=== PATIENT | male | born 1970 | race Caucasian/White ===

== ENCOUNTER 2020-03-14 15:52 | Emergency (ER) | payer BC ==
[~2020-03-14] VITALS: Ht 180.3 cm; Wt 127.0 kg
[2020-03-14 16:25] VITALS: BP_SYST 128
[2020-03-14] MEDS ORDERED: KETOROLAC TROMETHAMINE 60 MG/2 ML VIAL IM ONE (17:30)
[2020-03-14 18:25] VITALS: BP_SYST 142
== END 2020-03-14 18:25 | disposition home or self-care (01) ==
LOC: SED 15:52
DX: M54.32 Sciatica, left side (principal)
CPT/HCPCS: 93971; 96372; 99284; J1885

== ENCOUNTER 2022-04-19 00:20 | Emergency (ER) | payer BC ==
[~2022-04-19] VITALS: Ht 180.3 cm; Wt 129.3 kg
[2022-04-19 00:29] VITALS: BP_SYST 130
--- NOTE | 2022-04-19 00:36 | NUR ---
51 YR OLD AOX4, AMBULATORY MALE WITH COMPLAINT OF SOB, SWEATING WITH PRODUCTIVE COUGH, NASAL DRAINAGE, AND EAR PRESSURE. PT HAS HX OF HTN. PT PLACED ON FEDERAL AGENT IN GOWN. AT THE BEDSIDE
--- NOTE | 2022-04-19 00:44 | NUR ---
First contact. Pt present in room with at bedside.
[2022-04-19] MEDS ORDERED: DECADRON 4 MG TABLET PO ONE (00:45)
[2022-04-19] MEDS ORDERED: KETOROLAC TROMETHAMINE 15 MG VIAL IVP ONE ×2 (00:45→01:45)
[2022-04-19] MEDS ORDERED: KETOROLAC TROMETHAMINE 30 MG VIAL IM ONE (01:15)
[2022-04-19 01:36] LABS: BASOPHILS % (AUTO) 0.3 % (0.0-2.0); EOSINOPHILS % (AUTO) 0.1 % (0.0-4.0); HEMATOCRIT 39.5 % (36-54); HEMOGLOBIN 13.2 g/dL (14.0-18.0); LYMPHOCYTES # (AUTO) 1.6 K/uL (1.0-5.5); MEAN CORPUSCULAR HEMOGLOBIN 28 pg (27-31); MEAN CORPUSCULAR HGB CONC 33 % (32-36); MEAN CORPUSCULAR VOLUME 82 fL (79.0-98.0); MONOCYTES # (AUTO) 1.2 K/uL (0.0-1.0); MONOCYTES % (AUTO) 10.3 % (1.7-9.3); NEUTROPHILS # (AUTO) 9.2 K/uL (1.8-7.7); NEUTROPHILS % (AUTO) 76.3 % (40.0-70.0); PLATELET COUNT (AUTO) 250 K/uL (130-430); RED CELL DISTRIBUTION WIDTH 14.4 % (9.0-15.0); WHITE BLOOD COUNT (AUTO) 12.1 K/uL (4.8-10.8)
[2022-04-19 01:40] LABS: CALCIUM 8.2 mg/dL (8.4-11.0); CREATININE 0.88 mg/dL (0.55-1.30); POTASSIUM 3.3 mmol/L (3.5-5.1)
[2022-04-19 01:54] LABS: STREPTOCOCCUS A SCREEN (RAPID) NEGATIVE (NEGATIVE)
[2022-04-19 01:54] LABS: ALBUMIN 3.4 g/dL (3.4-4.8); TOTAL BILIRUBIN 0.2 mg/dL (0.0-1.0)
[2022-04-19] MEDS ORDERED: POTASSIUM CHLORIDE 20 MEQ TAB.PRT.SR PO ONE (02:15)
[2022-04-19] MEDS ORDERED: LIDOCAINE VISCOUS 2%, 15 ML UDC MM ONE (02:15)
[2022-04-19] MEDS ORDERED: GUAI5SYR4 PO ×4 (02:58→03:14)
[2022-04-19] MEDS ORDERED: DEXA4TAB PO ×2 (02:58)
[2022-04-19] MEDS ORDERED: LORA10TA7 PO ×3 (02:58→03:14)
[2022-04-19] MEDS ORDERED: NIRM1TAB PO ×3 (02:58→03:14)
[2022-04-19] MEDS ORDERED: DEC4 PO (03:14)
[2022-04-19 03:15] VITALS: BP_SYST 116
--- NOTE | 2022-04-19 03:28 | NUR ---
Patient given written and verbal discharge instructions and verbalizes understanding. ER MD discussed with patient the results and treatment provided. Patient in stable condition. ID arm band removed. IV catheter removed intact and dressing applied, no active bleeding.Rx of dexamethasone, guaifenesin/codeine syrup, loratadine, and nirmatrelvir/ritonavir given. Patient educated on pain management and to follow up with PMD. Pt and also understand that they must self isolate to prevent spreading covid to others.Opportunity for questions provided and answered. Medication side effect fact sheet provided.
== END 2022-04-19 03:28 | disposition home or self-care (01) ==
LOC: SED 00:20
DX: U07.1 COVID-19 (principal); E87.6 Hypokalemia; J02.8 Acute pharyngitis due to other specified organisms; B97.89 Other viral agents as the cause of diseases classified elsewhere; I10 Essential (primary) hypertension; Z79.899 Other long term (current) drug therapy
CPT/HCPCS: 36415; 71045; 80053; 85025; 86403; 87081; 87426; 87804 ×2; 93005; 96374; 99285; J1885; J2001; J8540

== ENCOUNTER 2023-06-28 08:09 | Emergency (ER) | payer BC ==
[~2023-06-28] VITALS: Ht 177.8 cm; Wt 122.5 kg
[~2023-06-28 08:09] MED LIST: DEC4 PO; GUAI5SYR4 PO; LORA10TA7 PO; NIRM1TAB PO
[2023-06-28 08:10] VITALS: BP_SYST 154; PULSE 78; RESP 17; TEMP 98.1; O2SAT 98
--- NOTE | 2023-06-28 08:10 | NUR ---
BROUGHT BACK TO BED #4 AND TRIAGED. REPORT GIVEN TO ROMA
--- NOTE | 2023-06-28 08:15 | NUR ---
RECEIVED PT FROM JUDIE HUGGINS. ASSUMED CARE. PT BIBS FROM HOME FOR RLQ PAIN SINCE LAST NIGHT, +NAUSEA. DENIES DIARRHEA OR VOMITING. PT IS AAOX4. ON R/A. VSS. SKIN CDI, NO EDEMA, PERIPHERAL PULSES NORMAL. SIDERAILS UP X2.
--- NOTE | 2023-06-28 08:17 | NUR ---
DR. LAWSON AT BEDSIDE TO ASSESS PT.
--- NOTE | 2023-06-28 08:20 | NUR ---
URINE OBTAINED AND TAKEN TO LAB.
[2023-06-28 08:49] LABS: BILIRUBIN,URINE NEGATIVE (NEGATIVE); BLOOD, URINE NEGATIVE (NEGATIVE); CLARITY/URINE CLEAR (CLEAR); COLOR,URINE YELLOW (YELLOW); GLUCOSE,URINE NEGATIVE (NEGATIVE); KETONES,URINE NEGATIVE (NEGATIVE); LEUKOCYTE ESTERASE ,URINE NEGATIVE (NEGATIVE); NITRITE, URINE NEGATIVE (NEGATIVE); PROTEIN URINE NEGATIVE (NEGATIVE); UROBILINOGEN,URINE 0.2 (0.2-1.0)
[2023-06-28 09:19] LABS: BASOPHILS % (AUTO) 0.4 % (0.0-2.0); EOSINOPHILS # (AUTO) 0.1 K/uL (0.0-0.4); EOSINOPHILS % (AUTO) 0.9 % (0.0-4.0); HEMATOCRIT 46.6 % (36-54); LYMPHOCYTES # (AUTO) 2.8 K/uL (1.0-5.5); LYMPHOCYTES % (AUTO) 26.9 % (20.5-51.5); MEAN CORPUSCULAR HEMOGLOBIN 28 pg (27-31); MEAN CORPUSCULAR HGB CONC 32 % (32-36); MEAN CORPUSCULAR VOLUME 85 fL (79.0-98.0); MONOCYTES # (AUTO) 0.9 K/uL (0.0-1.0); MONOCYTES % (AUTO) 8.8 % (1.7-9.3); NEUTROPHILS # (AUTO) 6.7 K/uL (1.8-7.7); PLATELET COUNT (AUTO) 297 K/uL (130-430); RED BLOOD CELL COUNT(AUTO) 5.46 MIL/uL (4.2-6.2); WHITE BLOOD COUNT (AUTO) 10.6 K/uL (4.8-10.8)
[2023-06-28 09:21] LABS: CALCIUM 9.6 mg/dL (8.4-11.0); CREATININE 0.84 mg/dL (0.55-1.30)
--- NOTE | 2023-06-28 09:23 | NUR ---
CT SCAN COMPLETED, PT BACK IN ROOM AND PLACED ON MONITOR.
[2023-06-28 09:29] LABS: PROTHROMBIN TIME 10.4 SECS (9.5-12.5)
[2023-06-28 09:53] LABS: ALBUMIN 4.1 g/dL (3.4-4.8); TOTAL BILIRUBIN 0.7 mg/dL (0.0-1.0)
[2023-06-28] MEDS ORDERED: IBUP-1971 PO (10:40)
[2023-06-28] MEDS ORDERED: HYDR-3927 PO (10:40)
--- NOTE | 2023-06-28 11:20 | NUR ---
Patient given written and verbal discharge instructions and verbalizes understanding. ER MD discussed with patient the results and treatment provided. Patient in stable condition. ID arm band removed. IV catheter removed intact and dressing applied, no active bleeding. Rx of NORCO, MOTRIN given. Patient educated on pain management and to follow up with PMD. Pain Scale 2/10. Opportunity for questions provided and answered. Medication side effect fact sheet provided.
[2023-06-28 11:26] VITALS: BP_SYST 147; PULSE 75; RESP 18; TEMP 98.2; O2SAT 98
== END 2023-06-28 11:20 | disposition home or self-care (01) ==
LOC: SED 08:09
DX: K80.50 Calculus of bile duct without cholangitis or cholecystitis without obstruction (principal); R10.9 Unspecified abdominal pain; R11.0 Nausea; I10 Essential (primary) hypertension; Z79.899 Other long term (current) drug therapy
CPT/HCPCS: 36415; 76376; 80053; 81003; 82150; 83690; 85025; 85610-TC; 85730-TC; 99284